=== PATIENT | female | born 1965 | race Caucasian/White ===

== ENCOUNTER → 2023-05-31 13:55 | Outpatient (CLI) | payer OTHER, SELFPAY ==
--- NOTE | ~2023-05-31 | CT_ITS ---
EXAMINATION: CT abdomen pelvis w con INDICATION: Left upper quadrant pain TECHNIQUE: Computed tomographic images of the abdomen and pelvis were obtained after the administrati on of 100 cc of Omnipaque 350 intravenous contrast. The dose-length product (DLP) was 1091.69 mGy-cm. Automated exposure control and iterative reconstruction technique were employed. COMPARISON: None available FINDINGS: Minimal dependent atelectasis is present in the lung bases. The heart size is normal. The l iver is diffusely low in attenuation when compared with the spleen, consistent with hepatic steatosis . The spleen, pancreas, gallbladder, and adrenal glands are normal. The right kidney is unremarkable. There is a 1.5 cm soft tissue attenuation mass of the left mid kidney. No pathologically enlarged ab dominal or pelvic lymph nodes are identified. No free intraperitoneal gas or evidence of bowel obstru ction. Colonic diverticulosis is present without evidence of diverticulitis. The appendix is normal. There is mild lumbar spondylosis. IMPRESSION: 1. No CT correlate for the patient's symptoms. 2. Diffuse hepatic steatosis. 3. Indeterminate left kidney mass which could reflect proteinaceous cyst or renal neoplasm. Follow-up CT or MRI without and with contrast is recommended. Reviewed, dictated and finalized at location F. IMPRESSION: 1. No CT correlate for the patient's symptoms. 2. Diffuse hepatic steatosis. 3. Indeterminate left kidney mass which could reflect proteinaceous cyst or deven al neoplasm. Follow-up CT or MRI without and with contrast is recommended.
[2023-05-31 14:21] LABS: Estimated Glomerular Filt Rate 57
== END ==
PROVIDERS: PCP Family Medicine Sports Medicine; Visit Provider Family Medicine Sports Medicine
DX: R10.12 Left upper quadrant pain (principal); R19.8 Other specified symptoms and signs involving the digestive system and abdomen; K76.0 Fatty (change of) liver, not elsewhere classified; N28.89 Other specified disorders of kidney and ureter
CPT/HCPCS: 74177; Q9967

== ENCOUNTER → 2023-06-14 08:59 | Outpatient (CLI) | payer OTHER, SELFPAY ==
--- NOTE | ~2023-06-14 | CT_ITS ---
CT of the Abdomen and Pelvis: Indication: Left renal mass Technique: 2.5 mm axial scans were obtained through the abdomen and pelvis prior to and following in travenous administration of 100 cc of Omnipaque 350. Dose reduction technique was used on this scan b y utilizing automated exposure control and iterative reconstruction technique. The dose-length produc t (DLP) was 1830.18 mGy-cm. COMPARISON: 05/31/2023 Findings: Scans through the lung bases are unremarkable. Probable diffuse fatty infiltration of liver. The spleen, pancreas, gallbladder, adrenals and right k idney are within normal limits. 1.6 cm benign left renal cyst is present. No evidence of aortic aneur ysm. No lymphadenopathy. No bowel obstruction or bowel wall thickening. There is no evidence to suggest acute appendicitis. Images through the pelvis were performed. Urinary bladder unremarkable. No adnexal mass seen. No asci juan miguel. Impression: Benign left renal cyst. Diffuse fatty infiltration of liver. Reviewed, dictated and finalized at location . Impression: Benign left renal cyst. Diffuse fatty infiltration of liver.
[2023-06-14 09:22] LABS: Estimated Glomerular Filt Rate > 60
== END ==
PROVIDERS: PCP Family Medicine Sports Medicine; Visit Provider Family Medicine Sports Medicine
DX: E04.2 Nontoxic multinodular goiter (principal); N28.1 Cyst of kidney, acquired; K76.0 Fatty (change of) liver, not elsewhere classified; N28.89 Other specified disorders of kidney and ureter
CPT/HCPCS: 74178; Q9967

== ENCOUNTER 2025-02-07 00:15 | Day surgery (SDC) | payer OTHER, SELFPAY ==
[2025-01-28 11:37] VITALS: BMI 40.7
--- OUTSIDE RECORDS SUMMARY | 2025-02-07 00:18 | XMS_ITS | Referral Summary ---
Author Organization [facility] Address [address] [place] [address] Care Team Providers Care Food Trades Assistants Name Role Phone Sara Persaud NP Primary Care Provider Quentin Solano MD Unavailable [phone] Aileen Ornelas MD Unavailable [phone] Encounters Date Type Department Care Team Description 12/30/2024 Orders Only [facility] at [address] [address] Sara Persaud NP 11/18/2024 Results Follow-Up [facility] at [address] [address] Sara Persaud NP Hemoglobin A1c, Vitamin D 25 hydroxy, Thyroid Function [place], Additional followed-up results: 5 11/15/2024 9:18 AM CDT - 11/15/2024 11:59 PM CDT Hospital Encounter [address] [address] IGT (impaired glucose tolerance); Vitamin D deficiency; Acquired hypothyroidism; Essential hypertension with goal blood pressure less than 130/80 Discharge Disposition: Discharge to home or self care 11/15/2024 9:30 AM CDT Lab [facility] at [address] [address] Hypothyroidism (Primary Dx) 11/13/2024 4:00 PM CDT Office Visit [facility] at [address] [address] Sara Perasud NP Annual physical exam (Primary Dx); Essential hypertension with goal blood pressure less than 130/80; Colon cancer screening; Acquired hypothyroidism; IGT (impaired glucose tolerance); Vitamin D deficiency; Class 3 severe obesity due to excess calories with serious comorbidity and body mass index (BMI) of 40.0 to 44.9 in adult (HCC) from Last 3 Months Allergies Active Allergy Reactions Criticality Noted Date Comments Erythromycin Other (See comments) Low Pt does not recall allergy Penicillins Shortness of breath High Difficulty breathing Sulfa (Sulfonamide Antibiotics) Itching Low 06/26/2020 Medications al & mag hydroxide with simethicone-di phenhydramine- lidocaine (MAGIC MOUTHWASH) suspension [id number] ns:Sore throat Take 10 mL by mouth every 6 (six) hours as needed (sore throat) Gargle and swallow. May cause drowsiness. If drowsiness is undesirable, may gargle and spit. 240 mL 11/08/19 24 Active Additional Information Patient not taking.Informant: Self, Reported on 11/13/2024 albuterol HFA (PROVENTIL HFA,VENTOLIN HFA,PROAIR HFA) 90 mcg/actuation inhaler Inhale 2 puffs every 6 (six) hours as needed for wheezing Active montelukast (SINGULAIR) 10 mg tablet TAKE 1 TABLET BY MOUTH EVERY MORNING BEFORE BREAKFAST 100 tablet 10/22/19 25 Active losartan-hydro CHLOROthiazide (HYZAAR) 100-12.5 mg per tablet TAKE 1 TABLET BY MOUTH DAILY 90 tablet 10/23/19 25 Active tirzepatide, weight loss, (Zepbound) 5 mg/0.5 mL pen injector Inject 0.5 mL (5 mg total) under the skin every 7 days 3 mL 1 12/31/19 25 Active levothyroxine (SYNTHROID) 75 mcg tablet TAKE 1 TABLET(75 MCG) BY MOUTH DAILY 90 tablet 01/30/20 25 Active levothyroxine (SYNTHROID) 75 mcg tablet Take 1 tablet (75 mcg total) by mouth transplant nurse before breakfast 025 Discontinued Active Problems Problem Noted Date Diagnosed Date Colitis 11/14/2023 Fatty liver 06/05/2023 Overview (06/15/2023): Noted on CT abdomen pelvis 05/31/[address] abdomen and pelvis done 06/14/2023 Renal cyst, left 06/05/2023 Overview (06/15/2023): Noted initially on CT abdomen pelvis done for abdominal pain 05/31/23. The follow-up CT abdomen and pelvis with and without contrast renal protocol 06/14/23 confirmed that the area corresponds to a benign-appearing left renal cyst. No additional evaluation is needed IGT (impaired glucose tolerance) 04/11/2023 Class 3 severe obesity due t o excess calories with serious comorbidity and body mass index (BMI) of 40.0 to 44.9 in adult 04/26/2022 Assessment & Plan (11/13/2024 4:43 PM CDT): Healthy, low carbohydrate lifestyle and exercise for 150min/week recommended Discussed weight loss medication options, pt will check with insurance. Hypothyroidism 04/26/2022 Assessment & Plan (11/13/2024 4:44 PM CDT): Continues Synthroid 75 mcg, updated labs ordered Essential hypertension with goal blood pressure less than 130/80 04/25/2022 Assessment & Plan (11/13/2024 4:44 PM CDT): BP stable in office, continues Hyzaar Updated labs ordered. Mild intermittent asthma without complication Ganglion of left wrist 07/20/2020 Overview (07/20/2020): Added automatically from request for surgery [id number] Immunizations Immunization Administration Dates Next Due Influenza, Quadrivalent, Mckayla l Culture-based MDCK, Preservative Free, Antibiotic Free, Intramuscular 05/18/2019,08/04/2018,08/19/2017 Influenza, Quadrivalent, Spl it, Preservative Free, Intramuscular 08/06/2021 Pfizer SARS-CoV-2 Monovalent Vaccination (12+ Yrs) ALVARADO-READY TO USE 12/15/2021 Pfizer SARS-CoV-2 Monovalent Vaccination (12+ Yrs) PURPLE 12/17/2021,08/06/2021 Pneumococcal Polysaccharide PPV23 04/26/2022 Tdap 04/26/2022 ZOSTER Recombinant 07/29/2019,05/18/2019 Social History Tobacco Use Types Packs/Day Years Used Date Smoking Tobacco: Never Smokeless Tobacco: Never Tobacco Cessation:Counseling Given: Not Answered Alcohol Use Standard Drinks/Week Comments Yes 0 (1 standard drink = 0.6 oz pur e alcohol) social AUDIT-C Answer Date Recorded Q1: How often do you have a drink containing alc ohol? 2-4 times a month 04/26/2022 Q2: How many drinks containi ng alcohol do you have on a typical day when you are drinking? 1 or 2 04/26/2022 Q3: How often do you have si x or more drinks on one occasion? Never 04/26/2022 PHQ-2 Answer Date Recorded PHQ-2 Total Score (If total score is 3 or more points, staff should administer the PHQ-9) 0 11/13/2024 Exercise Vital Sign Answer Date Recorde d On average, how many days pe r week do you engage in moderate to strenuous exercise (like a brisk walk)? 0 days 04/26/2022 On average, how many minutes do you engage in exercise at this level? 0 min 04/26/2022 Personal Safety Answer Date Recorded Have you ever been in or are you currently in a harmful physical or emotional relationship or is someone making you feel afraid or unsafe? Denies 11/14/2023 Comments No Sex and Gender Information Value Date Recorded Sex Assigned at Not on file Legal Sex Female 7:44 PM ENVIRONMENTAL PROGRAM MANAGER Gender Identity Female 08/31/2020 7:41 PM ENVIRONMENTAL PROGRAM MANAGER Sexual Orientation Not on file Last Filed Vital Signs Vital Sign Reading Time Taken Comments Blood Pressure 130/84 11/13/2024 4:01 PM CDT Pulse 91 11/13/2024 4:01 PM CDT Temperature 36.8 C (98.2 F) 11/13/2024 4:01 PM CDT Respiratory Rate 18 11/15/2023 7:56 AM CDT Oxygen Saturation 96% 11/13/2024 4:01 PM CDT Inhaled Oxygen Concentration - - Weight 112.5 kg (248 lb) 11/13/2024 4:01 PM CDT Height 165.1 cm (5' 5) 11/13/2024 4:01 PM CDT Body Mass Index 41.27 11/13/2024 4:01 PM CDT Plan of Treatment Not on file Procedures Procedure Name Priority Date/Time Associated Diagnosis Comments EGFR Routine 11/15/2024 12:00 AM CDT Essential hypertension with goal blood pressure less than 130/80 DIFFERENTIAL AUTO Routine 11/15/2024 12:00 AM CDT Essential hypertension with goal blood pressure less than 130/80 CBC WITH AUTO DIFFERENTIAL Routine 11/15/2024 12:00 AM CDT Essential hypertension with goal blood pressure less than 130/80 COMPREHENSIVE METABOLIC PANEL Routine 11/15/2024 12:00 AM CDT Essential hypertension with goal blood pressure less than 130/80 LIPID PANEL Routine 11/15/2024 12:00 AM CDT Essential hypertension with goal blood pressure less than 130/80 THYROID FUNCTION CASCADE Routine 11/15/2024 12:00 AM CDT Acquired hypothyroidism VITAMIN D 25 HYDROXY Routine 11/15/2024 12:00 AM CDT Vitamin D deficiency HEMOGLOBIN A1C Routine 11/15/2024 12:00 AM CDT IGT (impaired glucose tolerance) SCREENING MAMMOGRAM BILATERAL W JAGDEEP Schedule Routine, Read Routine (OP Routine) 09/06/2024 12:41 PM ENVIRONMENTAL PROGRAM MANAGER Screening mammogram for breast cancer HEPATITIS C ANTIBODY Routine 04/10/2023 9:19 AM CDT Encounter for hepatitis C screening test for low risk patient Encounter for general adult medical examination with abnormal findings from Last 3 Months or Most Recently Relevant to Health Maintenance Results * eGFR (11/15/2024 12:00 AM CDT) eGFR 83 >=60 mL/min/1. 73 m2 Comment: Interpretive Data Reference Interval Normal >/= 90 mL/min/1.73m2 Mildly decreased* 60 - 89 mL/min/1.73m2 Mildly to moderately decreased 45 - 59 mL/min/1.73m2 Moderately to severely decreased 30 - 44 mL/min/1.73m2 Severely decreased 15 - 29 mL/min/1.73m2 Kidney Failure < 15 mL/min/1.73m2 *Relative to young adult level Estimated glomerular filtration rate is determined by the 2020 CKD-EPI equation recommended by the National Kidney Foundation (A Unifying Approach to GFR Estimation: Recommendations of the NKF-ASK Task Force on Reassessing the Inclusion of Race in Diagnosing Kidney Disease, JASN 202). The CKD-EPI equation should not be used for patients with unstable renal function and has not been validated in children and those over 70. Current interpretive data was last reviewed 2021. Blood 11/15/2024 11/15/2024 4:2 2 PM CDT Sara Persaud NP LAB BLOOD ORDERABLES Final Resul t FELIX [address] [address] Department of Laboratories [place] [id number] * Differential, auto (11/15/2024 12:00 AM CDT) Neutrophil abs 3.9 1.5 - 6.5 K/cumm Imm gran abs 0.0 0.0 - 0.1 K/cumm [facility] Lymphocyte abs 2.6 0.8 - 3.3 K/cumm [facility] Monocyte abs 0.4 0.2 - 0.8 K/cumm [facility] Eosinophil abs 0.4 0.0 - 0.5 K/cumm [facility] Basophil abs 0.1 0.0 - 0.1 K/cumm [facility] Neutrophil pct 53.0 % [facility] Comment: Interpretive Data Percent cell count reference ranges are not reported, since discordance with absolute values may lead to misinterpretation of CBC data. Current Interpretive Data was last revised on 2017. Imm gran pct 0.4 % [facility] Comment: Interpretive Data Percent cell count reference ranges are not reported, since discordance with absolute values may lead to misinterpretation of CBC data. Current Interpretive Data was last revised on 2017. Lymphocyte pct 35.3 % [facility] Comment: Interpretive Data Percent cell count reference ranges are not reported, since discordance with absolute values may lead to misinterpretation of CBC data. Current Interpretive Data was last revised on 2017. Monocyte pct 5.3 % [facility] Comment: Interpretive Data Percent cell count reference ranges are not reported, since discordance with absolute values may lead to misinterpretation of CBC data. Current Interpretive Data was last revised on 2017. Eosinophil pct 4.9 % [facility] Comment: Interpretive Data Percent cell count reference ranges are not reported, since discordance with absolute values may lead to misinterpretation of CBC data. Current Interpretive Data was last revised on 2017. Basophil pct 1.1 % [facility] Comment: Interpretive Data Percent cell count reference ranges are not reported, since discordance with absolute values may lead to misinterpretation of CBC data. Current Interpretive Data was last revised on 2017. Blood 11/15/2024 11/15/2024 4:1 0 PM CDT us Sara Persaud NP LAB BLOOD ORDERABLES Final Resul t Performing Organization Address [facility] Co de Phone Number [facility] [place] [address] [place] [address] * Thyroid Function [place] (11/15/2024 12:00 AM CDT) TSH 4.08 0.30 - 4.20 mcIUnit/mL Blood 11/15/2024 11/15/2024 4:1 0 PM CDT us Sara Persaud RELIGIOUS LEADER LAB BLOOD ORDERABLES Final Resul t Performing Organization Address [facility] Co de Phone Number [facility] [place] [address] [address] Department of [employer] [place] [address] * (ABNORMAL) CBC with auto differential (11/15/2024 12:00 AM CDT) WBC 7.4 3.8 - 9.9 K/cumm Hgb 12.5 11.9 - 15.5 g/dL [facility] Hct 41.2 35.6 - 45.5 % [facility] Plt 352 150 - 400 K/cumm [facility] MPV 9.4 9.1 - 12.3 fL [facility] RBC 4.18 3.90 - 5.20 M/cumm [facility] MCV 98.6(H) 81.3 - 96.4 fL [facility] MCH 29.9 27.1 - 33.3 pg [facility] MCHC 30.3(L) 32.3 - 35.7 g/dL [facility] RDW CV 13.5 11.1 - 14.9 % [facility] RDW SD 49.5(H) 35.7 - 48.1 fL [facility] NRBC abs 0.00 0.00 - 0.01 K/cumm [facility] Blood 11/15/2024 11/15/2024 4:1 0 PM CDT Sara Persaud RELIGIOUS LEADER LAB BLOOD ORDERABLES Final Resul t Performing Organization Address [facility] de Phone Number [facility] [address] [employer] [place], [place] [phone] * (ABNORMAL) Vitamin D 25 hydroxy (11/15/2024 12:00 AM CDT) Pathologist [facility] Vitamin D 25-OH 24(L) 30 - 80 ng/mL Blood 11/15/2024 11/15/2024 4:1 0 PM CDT Sara Persaud RELIGIOUS LEADER LAB BLOOD ORDERABLES Final Resul t Performing Organization Address [facility] Co de Phone Number [facility] [address] [address] Department [employer] [place], [place] [id number] * (ABNORMAL) Hemoglobin A1c (11/15/2024 12:00 AM CDT) Pathologist [facility] Hgb A1C 6.2(H) 4.0 - 5.6 % Estimated Average Glucose 131 mg/dL [facility] Comment: The ADA recommends reporting an estimated Average Glucose (eAG) with all Hemoglobin A1c results using the equation derived from a study of 507 normal and diabetic adults. Minority populations were underrepresented and children were not included. (Diabetes Care 31:4850-2958, 2008). The eAG is not equivalent to a fasting glucose. Blood 11/15/2024 11/15/2024 4:1 0 PM CDT Sara Persaud NP LAB BLOOD ORDERABLES Final Resul t [facility] [address] [address] Department [place] [address] * Lipid panel (11/15/2024 12:00 AM CDT) Cholesterol 184 30 - 199 mg/dL Comment: Interpretive Data Ages < or = 19 years Acceptable: <170 mg/dL Borderline high: 170-199 mg/dL High: >or= 200 mg/dL Ages > or = 20 years Desirable: <200 mg/dL Borderline high: 200-239 mg/dL High: >or= 240 mg/dL Literature References: 1. Expert Panel on Integrated Guidelines for Cardiovascular Health and Risk Reduction in Children and Adolescents. Pediatrics 2011;128:S213 2. NCEP Expert Panel. Circulation 2004;110:227 Current Interpretive Data was last revised on 2018. Triglycerides 118 <=149 mg/dL [facility] Comment: Interpretive Data Ages < or = 9 years Acceptable: <75 mg/dL Borderline high: 75-99 mg/dL High: >or= 100 mg/dL Ages 10 to 20 years Acceptable: <90 mg/dL Borderline high: 90-129 mg/dL High: >or= 130 mg/dL Ages > or = 20 years Desirable: <150 mg/dL Borderline high: 150-199 mg/dL High: 200-499 mg/dL Very high: >or= 499 mg/dL Literature References: 1. Expert Panel on Integrated Guidelines for Cardiovascular Health and Risk Reduction in Children and Adolescents. Pediatrics 2011;128:S213 2. NCEP Expert Panel. Circulation 2004;110:227 Current Interpretive Data was last revised on 2018. HDL 62 >=40 mg/dL [facility] Comment: Interpretive Data Ages < or = 19 years Acceptable: >45 mg/dL Borderline low: 40-45 mg/dL Low: <40 mg/dL Ages > or = 20 years Desirable: >or= 60 mg/dL Low: <40 mg/dL Literature References: 1. Expert Panel on Integrated Guidelines for Cardiovascular Health and Risk Reduction in Children and Adolescents. Pediatrics 2011;128:S213 2. NCEP Expert Panel. Circulation 2004;110:227 Current Interpretive Data was last revised on 2018. LDL, calculated 101 <=129 mg/dL [facility] Comment: Interpretive Data Ages < or = 19 years Acceptable: <110 mg/dL Borderline high: 110-129 mg/dL High: >or= 130 mg/dL Ages > or = 20 years Optimal: <100 mg/dL Near optimal: 100-129 mg/dL Borderline high: 130-159 mg/dL High: >160 mg/dL Calculated using the Mir LDL-C estimating equation. This equation was implemented on 2024. Prior to this date LDL-C was estimated using the Friedewald equation. Literature References: 1. Expert Panel on Integrated Guidelines for Cardiovascular Health and Risk Reduction in Children and Adolescents. Pediatrics 2011;128:S213 2. NCEP Expert Panel. Circulation 2004;110:227 3. Mir Abdul et al. REANNA Cardiol. 2020 January 02;5(5):540-548. doi: 10.1001/jamacardio.2020.0013 Current Interpretive Data was last revised on 2024. Non-HDL Cholesterol 122 mg/dL [facility] Comment: Interpretive Data Ages < or = 19 years Acceptable: <120 mg/dL Borderline high: 120-144 mg/dL High: >145 mg/dL Ages > or = 20 years When triglycerides are >200 mg/dL, Non-HDL cholesterol is a secondary target of therapy with treatment goals that are 30 mg/dL greater than the LDL cholesterol target. Literature References: 1. Expert Panel on Integrated Guidelines for Cardiovascular Health and Risk Reduction in Children and Adolescents. Pediatrics 2011;128:S213 2. NCEP Expert Panel. Circulation 2004;110:227 Current Interpretive Data was last revised on 2018. Chol/HDL ratio 3 [facility] Blood 11/15/2024 11/15/2024 4:1 0 PM CDT us Sara Persaud RELIGIOUS LEADER LAB BLOOD ORDERABLES Final Resul t Performing Organization Address City/[facility]/[place] [address] [address] Department [place] [address] * Comprehensive metabolic panel (11/15/2024 12:00 AM CDT) Sodium 138 135 - 145 mmol/L Potassium, pl 4.4 3.3 - 4.9 mmol/L [facility] Chloride 102 97 - 110 mmol/L [facility] CO2 25 22 - 32 mmol/L [facility] Anion gap 11 2 - 15 mmol/L [facility] BUN 12 6 - 25 mg/dL [facility] Creatinine 0.81 0.60 - 1.10 mg/dL [facility] Glucose 113 70 - 199 mg/dL [facility] Comment: Interpretive Data Fasting glucose >/= 126 mg/dl is diagnostic for diabetes. Fasting is defined as no caloric intake for at least 8 hours. Fasting glucose between 100 mg/dl to 125 mg/dl is diagnostic of prediabetes. In a patient with classic symptoms of hyperglycemia or hyperglycemic crisis, a random glucose >/= 200 mg/dl is diagnostic for diabetes. In the absence of unequivocal hyperglycemia, results should be confirmed by repeat testing. The classification and Diagnosis of Diabetes Diabetes Care 202; 46: S19-S40. Current interpretive data was last revised 2022. Calcium 9.3 8.5 - 10.3 mg/dL [facility] Bilirubin, total 0.7 0.1 - 1.2 mg/dL [facility] Protein, pl 7.2 6.5 - 8.5 g/dL [facility] Albumin 4.0 3.5 - 5.0 g/dL [facility] Alk phos 52 40 - 130 Units/L [facility] ALT 24 7 - 45 Units/L [facility] AST 28 10 - 45 Units/L [facility] Blood 11/15/2024 11/15/2024 4:1 0 PM CDT us Sara Persaud RELIGIOUS LEADER LAB BLOOD ORDERABLES Final Resul t [facility] [address] [address] Department [place] [address] * Screening Mammogram Bilateral W Jagdeep (09/06/2024 12:41 PM ENVIRONMENTAL PROGRAM MANAGER) Anatomical Region Laterality Modality Breast Bilateral Mammography Narrative 09/06/2024 5:29 PM ENVIRONMENTAL PROGRAM MANAGER Examination: Screening Mammogram Bilateral W Jagdeep: 09/06/24 Clinical: Screening mammogram for breast cancer. Prior Study Comparisons: Comparison was made to the prior available relevant studies at the time of interpretation. Findings: Screening Mammogram Bilateral W Jagdeep Bilateral No significant masses, malignant type calcifications, skin thickening, nipple retraction, or significant lymphadenopathy is noted in either breast. Computer Aided Detection was utilized for the interpretation of this study. There are scattered areas of fibroglandular density. The patient will be notified of results by letter. Impression: BI-RADS ATLAS category (overall): 2 - Benign There is no mammographic evidence of malignancy. Routine Screening Mammogram in 1 Yr is recommended for bilateral Overall Assessment: 2 - Benign us Aileen Ornelas MD IMG MAMMO PROCEDURES Final Result * Hepatitis C antibody (04/10/2023 9:19 AM CDT) Hep C Ab Nonreactive Nonreactive [facility] Comment: Interpretive Data Nonreactive: Antibodies to HCV not detected. Does NOT exclude the possibility of recent exposure to HCV. Equivocal: Equivocal for HCV antibodies. Supplemental molecular testing will be automatically performed to determine infection status in accordance with current CDC screening recommendations. Reactive: Positive for HCV antibodies. This may represent current or past HCV infection. Supplemental molecular testing will be automatically performed to determine current infection status in accordance with current CDC screening recommendations. Interpretive data was last revised on 2019. Blood 04/10/2023 9:19 AM CDT 04/10/2023 2:56 PM CDT us Nelli Abel MD LAB MICROBIOLOGY - GEN ERAL ORDERABLES Final Result [facility] [place] [address] [place] [address] from Last 3 Months or Most Recently Relevant to Health Maintenance Insurance [employer] OPEN ACCESS [employer] OPEN ACCESS [employer] OPEN ACCESS [employer] OPEN ACCESS Advance Directives For more information, please contact: [phone] * Full Code (Latest Code Status on File) Date Activated Date Inactivated Comments 11/14/2023 11:20 PM 11/15/2023 3:50 PM Care Teams Food Trades Assistants Relationship Specialty Start Date End Date Sara Persaud NP [address] [facility] [[email or web address] [address] [place] [address] PCP - General Family Medicine 11/13/24 Quentin Solano MD [address] [facility] [address] [place] [address] Referring Physician Gastroenterology 11/13/24 Aileen Ornelas MD [address] [facility] [[email or web address]] [address] [place] [address] Consulting Physician Obstetrics and Gynecology 11/13/24
--- OUTSIDE RECORDS SUMMARY | 2025-02-07 00:18 | XMS_ITS | Clinical Summary ---
Author Organization [facility] Address [address] [place] [address] Care Team Providers Care Incinerator Plant Laborer Name Role Phone Unavailable Primary Care Provider Unavailabl e Source Comments [facility],non-owned Affiliates and Associated Physician Practices is amultiple site organization consisting of ambulatory clinics and hospital sitesin [place], [place], [place] and [place]. This disclosure is being madepursuant to the Care Everywhere program and may not contain all information available regarding this patient. Last updated 18.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 Gender Identity Not on file Sexual Orientation Not on file Plan of Treatment Health Maintenance Due Date Last Done Comments COLOGUARD (AGES 45-75) - COL ON CA SCREENING 1963 COLON MONITORING 1963 COLONOSCOPY - COLON CA SCREENING 1963 CT COLONOGRAPHY - COLON CA SCREENING 1963 Colorectal Cancer Screening 1963 FIT - COLON CA SCREENING 1963 FLEX SIG - COLON CA SCREENING 1963 LIPID TESTING 1963 MAMMOGRAM 1963 HIV SCREENING 1978 HEPATITIS C SCREENING 10/20/1981 DTAP/TDAP/TD VACCINES (1 - Tdap) 1982 PNEUMOCOCCAL VACCINE 50+ (1 of 1 - PCV) 2013 ZOSTER VACCINE (1 of 2) 2013 COVID-19 VACCINE (3 - 2023-2 5 season) 2024 12/17/2021, 08/06/2021 DEPRESSION SCREENING 09/04/2024 INFLUENZA VACCINE (Season Ended) 2025 05/18/2019, 08/04/2018, 08/19/2017 Respiratory Syncytial Virus (RSV) Vaccine Pt: or over 60 yrs (1 - 1-dose 75+ series) 2038 HEPATITIS B VACCINE Aged Out No longe r eligible based on patient's age to complete this topic HIB VACCINE Aged Out No longer eligi ble based on patient's age to complete this topic HPV VACCINE Aged Out No longer eligi ble based on patient's age to complete this topic MENINGOCOCCAL (Group B) VACCINE SHARED DECISION-MAKING Aged Out No longer eligible based on patient's age to complete this topic MENINGOCOCCAL GROUPS A/C/Y/W VACCINE Aged Out No longer eligible b ased on patient's age to complete this topic Insurance CIG
--- OUTSIDE RECORDS SUMMARY | 2025-02-07 00:18 | XMS_ITS | Clinical Summary ---
Author Organization [facility] Address [address] [place] [address] Care Team Providers Care Game Preserve Manager Name Role Phone Cori Sara MESA Primary Care Provider [phone] Quentin Solano MD Unavailable [phone] Aileen Ornelas MD Unavailable [phone] Allergies Active Allergy Reactions Criticality Noted Date Comments Erythromycin Other (See comments) Low Pt does not recall allergy Penicillins Shortness of breath High Difficulty breathing Sulfa (Sulfonamide Antibiotics) Itching Low 06/26/2020 Medications al & mag hydroxide with simethicone-di phenhydramine- lidocaine (MAGIC MOUTHWASH) suspension [id number] ns:Sore throat Take 10 mL by mouth [...] 1 tablet (75 mcg total) by mouth 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 before 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 025 Discontinued Active Problems Problem [...] (07/20/2020): Added automatically from request for surgery [id number] Encounters Date Type Department Care Team Description 12/30/2024 Orders Only [facility] Medical [facility] Primary Care at [address] [phone] Sara Persaud NP 11/18/2024 Results Follow-Up [facility] at [address] [phone] Sara Persaud NP Hemoglobin A1c, Vitamin D 25 hydroxy, Thyroid Function Sherman, Additional followed-up results: 5 11/15/2024 9:30 AM CDT Lab [facility] at [address] [phone] Hypothyroidism (Primary Dx) 11/15/2024 9:18 AM CDT - 11/15/2024 11:59 PM CDT Hospital Encounter [address] [address] IGT (impaired glucose tolerance); Vitamin D deficiency; Acquired hypothyroidism; Essential hypertension with goal blood pressure less than 130/80 Discharge Disposition: Discharge to home or self care 11/13/2024 4:00 PM CDT Office Visit [facility] at [address] [phone] Sara Persaud NP Annual physical exam (Primary Dx); Essential hypertension with goal blood pressure less than 130/80; Colon cancer screening; Acquired hypothyroidism; IGT (impaired glucose tolerance); Vitamin D deficiency; Class 3 severe obesity due to excess calories with serious comorbidity and body mass index (BMI) of 40.0 to 44.9 in adult (HCC) from Last 3 Months Immunizations Immunization Administration Dates Next Due Influenza, Quadrivalent, Mckayla l Culture-based MDCK, Preservative Free, Antibiotic Free, Intramuscular 05/18/2019,08/04/2018,08/19/2017 Influenza, Quadrivalent, Spl it, Preservative Free, Intramuscular 08/06/2021 Pfizer SARS-CoV-2 Monovalent Vaccination (12+ Yrs) ALVARADO-READY TO USE 12/15/2021 Pfizer SARS-CoV-2 Monovalent Vaccination (12+ Yrs) PURPLE 12/17/2021,08/06/2021 Pneumococcal Polysaccharide PPV23 04/26/2022 Tdap 04/26/2022 ZOSTER Recombinant 07/29/2019,05/18/2019 Surgical History Surgery Date Site/Laterality Comments SECTION x3 WISDOM TOOTH EXTRACTION WRIST SURGERY 09/04/2019 - 09/03/2020 Left ganglion cyst Medical History Medical History Date Comments Asthma Pre-eclampsia Ganglion cyst Essential hypertension with goal blood pressure less than 130/80 04/25/2022 Hypothyroidism 04/26/2022 Mild intermittent asthma without complication Family History Medical History Relation Name Comments Coronary artery disease Father Jhon 60's Diabetes Father Jhon Heart disease Father Jhon Hypertension Father Jhon Lung cancer Father Jhon (72) Smoking Breast cancer Maternal Grandmother 70 Arthritis Mother Hannah Diabetes Mother Hannah Lung cancer Mother Hannah (70) Smoking Anesthesia problems Neg Hx Cervical cancer Neg Hx Colon cancer Neg Hx Endometrial cancer Neg Hx Ovarian cancer Neg Hx Relation Name Status Comments Father Jhon Maternal Grandmother Mother Hannah Sister Alive Social History Tobacco Use Types Packs/Day Years [...] on file Legal Sex Female 7:44 PM 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 Gender Identity Female 08/31/2020 7:41 PM 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 Sexual Orientation Not on file Obstetrics History Last Filed Vital Signs Vital Sign Reading [...] 11/13/2024 4:01 PM CDT Plan of Treatment Health Maintenance Due Date Last Done Comments Colon Cancer Screening-Colonoscopy 1965 Hepatitis B Screening 1981 Pneumococcal vaccine <65 (2 of 2 - PCV) 04/26/2023 04/26/2022 Covid-19 Vaccine (2023-2 5 season) 2024 12/17/2021, 12/15/2021, 08/06/2021, Additional history exists Influenza Vaccine (Season Ended) 2025 08/06/2021, 05/18/2019, 08/04/2018, Additional history exists Cervical Cancer Screening 06/29/2025 06/29/2023 Breast Cancer Screening-Mammogram 09/06/2025 09/06/2024, 09/01/2023, 09/01/2022, Additional history exists Depression Screening 11/13/2025 11/13/2024, 03/23/2023, 08/03/2022, Additional history exists Regular Well Visit/Exam 18-64 11/13/2025, 07/16/2024, 03/23/2023, Additional history exists DTaP/Tdap/Td Vaccine (2 - Td or Tdap) 04/26/2032 04/26/2022 Zoster Vaccine Completed 07/29/2019, 05/18/2019 Hepatitis C Screening Completed 04/10/2023 Procedures Procedure Name Priority Date/Time Associated Diagnosis [...] Read Routine (OP Routine) 09/06/2024 12:41 PM 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 Screening mammogram for breast cancer HEPATITIS C [...] of Race in Diagnosing Kidney Disease, JASN 2020). The CKD-EPI equation should not be used for patients with unstable renal function and has not been validated in children and those over 70. Current interpretive data was last reviewed 2021. Blood 11/15/2024 11/15/2024 4:2 2 PM CDT Sara Persaud NP LAB BLOOD ORDERABLES Final Resul t [facility] [address] Department [place] [address] * Differential, auto (11/15/2024 12:00 AM CDT) Neutrophil abs 3.9 1.5 - 6.5 K/cumm Imm gran abs 0.0 0.0 - 0.1 K/cumm [facility] Lymphocyte abs 2.6 0.8 - 3.3 K/cumm [facility] Monocyte abs 0.4 0.2 - 0.8 K/cumm [facility] Eosinophil abs 0.4 0.0 - 0.5 K/cumm [facility] Basophil abs 0.1 0.0 - 0.1 K/cumm [facility] Neutrophil pct 53.0 % [facility] Comment: Interpretive [...] revised on 2017. Lymphocyte pct 35.3 % [facility] Comment: Interpretive Data Percent cell count reference ranges are not reported, since discordance with absolute values may lead to misinterpretation of CBC data. Current Interpretive Data was last revised on 2017. Monocyte pct 5.3 % [facility] Comment: Interpretive Data Percent cell count reference ranges are not reported, since discordance with absolute values may lead to misinterpretation of CBC data. Current Interpretive Data was last revised on 2017. Eosinophil pct 4.9 % [facility] Comment: Interpretive Data Percent cell count reference ranges are not reported, since discordance with absolute values may lead to misinterpretation of CBC data. Current Interpretive Data was last revised on 2017. Basophil pct 1.1 % [facility] Comment: Interpretive Data Percent cell count reference ranges are not reported, since discordance with absolute values may lead to misinterpretation of CBC data. Current Interpretive Data was last revised on 2017. Blood 11/15/2024 11/15/2024 4:1 0 PM CDT us Sara Persaud GRAPHICS SPECIALIST LAB BLOOD ORDERABLES Final Resul t Performing Organization Address [facility] Co de Phone Number [facility] [address] [place], [place] [phone] * Thyroid Function Sherman (11/15/2024 12:00 AM CDT) TSH 4.08 0.30 - 4.20 mcIUnit/mL Blood 11/15/2024 11/15/2024 4:1 0 PM CDT Sara Persaud GRAPHICS SPECIALIST LAB BLOOD ORDERABLES Final Resul t Performing Organization Address [facility] Co de Phone Number [facility] [address] [facility] [place], [place] [phone] * (ABNORMAL) CBC with auto differential (11/15/2024 12:00 AM CDT) WBC 7.4 3.8 - 9.9 K/cumm Hgb 12.5 11.9 - 15.5 g/dL [facility] Hct 41.2 35.6 - 45.5 % [facility] Plt 352 150 - 400 K/cumm [facility] MPV 9.4 9.1 - 12.3 fL [facility] RBC 4.18 3.90 - 5.20 M/cumm [facility] MCV 98.6(H) 81.3 - 96.4 fL [facility] MCH 29.9 27.1 - 33.3 pg [facility] MCHC 30.3(L) 32.3 - 35.7 g/dL [facility] RDW CV 13.5 11.1 - 14.9 % [facility] RDW SD 49.5(H) 35.7 - 48.1 fL [facility] NRBC abs 0.00 0.00 - 0.01 K/cumm [facility] Blood 11/15/2024 11/15/2024 4:1 0 PM CDT us Sara Persaud GRAPHICS SPECIALIST LAB BLOOD ORDERABLES Final Resul t Performing Organization Address [facility] de Phone Number [facility] [id number] [place] [address] * (ABNORMAL) Vitamin D 25 hydroxy (11/15/2024 12:00 AM CDT) Pathologist [facility] Vitamin D 25-OH 24(L) 30 - 80 ng/mL Blood 11/15/2024 11/15/2024 4:1 0 PM CDT Sara Persaud GRAPHICS SPECIALIST LAB BLOOD ORDERABLES Final Resul t Performing Organization Address [facility] de Phone Number [facility] [address] [address] [place] [address] * (ABNORMAL) Hemoglobin A1c (11/15/2024 12:00 AM CDT) Pathologist [facility] Hgb A1C 6.2(H) 4.0 - 5.6 % Estimated Average Glucose 131 mg/dL [facility] Comment: The ADA recommends reporting an estimated Average Glucose (eAG) with all Hemoglobin A1c results using the equation derived from a study of 507 normal and diabetic adults. Minority populations were underrepresented and children were not included. (Diabetes Care 31:8867-8304, 2008). The eAG is not equivalent to a fasting glucose. Blood 11/15/2024 11/15/2024 4:1 0 PM CDT us Sara Cox GRAPHICS SPECIALIST LAB BLOOD ORDERABLES Final Resul t [facility] [address] Department [place] [address] * Lipid panel (11/15/2024 12:00 AM CDT) [...] on 2018. Triglycerides 118 <=149 mg/dL [facility] Comment: Interpretive Data Ages < or = [...] 3. Mir Abdul et al. REANNA Cardiol. 2019January 02;5(5):540-548. doi: 10.1001/jamacardio.2020.0013 Current Interpretive Data was [...] revised on 2018. Chol/HDL ratio 3 [facility] Blood 11/15/2024 11/15/2024 4:1 0 PM CDT Sara Persaud GRAPHICS SPECIALIST LAB BLOOD ORDERABLES Final Resul t Performing Organization Address [facility] Co de Phone Number [facility] [address] [place] [address] * Comprehensive metabolic panel (11/15/2024 12:00 AM [...] 4:1 0 PM CDT us Sara Persaud GRAPHICS SPECIALIST LAB BLOOD ORDERABLES Final Resul t Performing Organization Address [facility] Co de Phone Number [facility] [address] Department of [employer] [place], [place] [phone] * Screening Mammogram Bilateral W Jagdeep (09/06/2024 12:41 PM 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) Anatomical Region Laterality Modality Breast Bilateral Mammography Narrative 09/06/2024 5:29 PM 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 Examination: Screening Mammogram Bilateral W Jagdeep: 09/06/24 [...] for bilateral Overall Assessment: 2 - Benign Aileen Ornelas MD IMG MAMMO PROCEDURES Final [...] - GEN ERAL ORDERABLES Final Result [facility] [address] Department [place] [address] from Last 3 Months or Most Recently Relevant to Health Maintenance Insurance [facility] OPEN ACCESS [employer] OPEN ACCESS [employer] OPEN ACCESS Advance Directives For more information, please contact: [phone] * Full Code (Latest Code Status on File) Date Activated Date Inactivated Comments 11/14/2023 11:20 PM 11/15/2023 3:50 PM Care Teams Game Preserve Manager Relationship Specialty Start Date End Date Sara Persaud NP [address] [facility] [address] [place] [address] PCP - General Family Medicine 11/13/24 Quentin Solano MD [address] [place] [address] Referring Physician Gastroenterology 11/13/24 Aileen Ornelas MD [address] [facility] [address] [place] [address] Consulting Physician Obstetrics and Gynecology 11/13/24
--- OUTSIDE RECORDS SUMMARY | 2025-02-07 00:18 | XMS_ITS | Encounter Summary ---
Author Organization [facility] Address [address] [facility] [place] [address] Care Team Providers Care Wardrobe Manager Name Role Phone Unavailable Primary Care Provider Unavailabl e Encounter Details Date Type Department Care Team (Late st Contact Info) Description 01/18/2021 Lab Requisition [facility] D[facility] Lab [address] [place] [address] Marie Bustamante MD [address] [place] [address] Social History Tobacco Use Types Packs/Day Years Used Date Smoking Tobacco: Never Assessed Comments Unknown Sex and Gender Information Value Date Recorded Sex Assigned at Not on file Legal Sex Female 5:[address]/MEDICAL INTERPRETER Gender Identity Not on file Sexual Orientation Not on file documented as of this encounter Plan of Treatment Not on file documented as of this encounter Procedures Procedure Name Priority Date/Time Associated Diagnosis Comments DERMATOPATHOLOGY Routine 01/14/2021 12:0 0 AM CDT documented in this encounter Results * DERMATOPATHOLOGY (01/14/2021 12:00 AM CDT) Case Report Dermatopathology Report Case: [id number] Authorizing Provider: Marie Bustamante MD Collected: 01/14/2021 12:00 AM Ordering Location: [facility] D[facility] Lab Received: 01/18/2021 11:45 AM Pathologist: Laura Farmer MD Specimen: Skin, right hand 12:50 PM CDT DERMATOPATHOLOGY LABORATORY Final Diagnosis Specimen A. SKIN, right hand: DERMAL SCAR RESIDUAL MELANOCYTIC PROLIFERATION NOT IDENTIFIED (L90.5) 12:50 PM CDT DERMATOPATHOLOGY LABORATORY at 1250 CDT Clinical History Junctional melanocytic proliferation; Bx proven. 12:50 PM CDT DERMATOPATHOLOGY LABORATORY Gross Description Specimen A: Received is one formalin filled container labeled with the patient's name and designated right hand. The specimen consists of a non-oriented ellipse of skin measuring [id number]. The margin is inked green. Jar 0. 12:50 PM CDT DERMATOPATHOLOGY LABORATORY Microscopic Description Specimen A. SKIN, right hand: There are fibroblasts and collagen bundles oriented parallel to the skin surface. There are elongated blood vessels, some of which are oriented perpendicular to the skin surface. No residual melanocytic proliferation is identified. 12:50 PM CDT DERMATOPATHOLOGY LABORATORY Disclaimer An external and internal positive and negative controls are appropriate for the histochemical, immunohistochemical and immunofluorescence stain(s) in this case (if any), except where stated explicitly. The performance characteristics of the stain(s) cited in this report were developed and its performance characteristic determined by the Dermatopathology Laboratory at [facility], directed by Dr. Hang Pompa. These tests need not be, and therefore are not, approved by the [place] Food and Drug Administration. The tests are used for clinical purposes. Billing Codes Specimen Charges Stain Charges 07342 1 12:50 PM CDT DERMATOPATHOLOGY LABORATORY Embedded Images 12:50 PM CDT DERMATOPATHOLOGY LABORATORY Pathology/Cytolog y TISSUE SPECIMEN FROM SKIN / Unknown 01/14/2021 01/18/2021 11:45 AM CDT Marie Bustamante MD LAB - PATHOLOGY/CYTOLOGY ORDERA BLES Final Result DERMATOPATHOLOGY LABORATORY [facility] - Department of Dermatology [address] [phone] documented in this encounter Visit Diagnoses Not on filedocumented in this encounter
[2025-02-07 06:50] VITALS: BP 116/78; PULSE 86; RESP 20; TEMP 35.8; O2SAT 100; BMI 38.4
[2025-02-07] MEDS: LACTATED RINGERS 1,000 ML 150 ML IV CONT (07:02)
--- NOTE | 2025-02-07 07:15 | WPDANESEPPF ---
Anes - Initial Pre Proc Eval Procedure: Operation Date: 02/07/25 08:00 Proposed Procedures p Screening Colonoscopy - Christopher Smith MD Date/Time: 02/07/25 07:15 Surgeon: Christopher Smith MD Pre Op Diagnosis: Screening Patient Data Age: 59 Gender: F Height: 1.65 m Weight: 104.7 kg Last Vital Signs Temp 35.8 C L 02/07/25 06:50 Pulse 86 02/07/25 06:50 Resp 20 02/07/25 06:50 BP 116/78 02/07/25 06:50 Pulse Ox 100 02/07/25 06:50 O2 Del Method Room Air 02/07/25 06:50 Allergies Allergy/AdvReac Type Severity Reaction Status Date / Time Penicillins Allergy Severe trouble Verified 01/28/25 11:33 breathing Sulfa (Sulfonamide Allergy Severe itching, Verified 01/28/25 11:33 Antibiotics) wheezing Home Medications ?Medication ?Instructions ?Recorded ?Confirmed ?Type levothyroxine 75 mcg tablet 75 mcg PO DAILY 01/28/25 02/07/25 History losartan 100 1 tablet PO DAILY 01/28/25 02/07/25 History mg-hydrochlorothiazide 12.5 mg tablet montelukast 10 mg tablet 10 mg PO DAILY 01/28/25 02/07/25 History tirzepatide (weight loss) 5 mg/0.5 5 mg subcut WEEKLY 01/28/25 02/07/25 History mL subcutaneous pen injector (Zepbound) Patient hx anesthesia problems: none Family hx anesthesia problems: none Results Review: All pre-operative results and documents have been reviewed as part of the pre-operative evaluation. [facility] Past Medical History Medical History (Updated 02/07/25 @ 07:15 by Ky Kramer MD) Asthma Obesity HTN (hypertension) Social History Social History Smoking status: Never smoker Alcohol intake: current Drinks per week: 4 Substance use type: does not use Living arrangements: with family Additional living arrangements comments: with sp Anes - Eval Final PreProcedure Day of Procedure 02/07/25 07:15 Patient weight: obese Heart: regular rate and rhythm Lungs: clear to auscultation Airway: Mallampati scale class II Neurological: alert and oriented Last oral intake: >/= 8 hours ASA classification: III Emergent: no Anesthetic plan: proceed Anesthesia type and monitoring: general GIVS and standard monitoring Results Review: All pre-operative results and documents have been reviewed as part of the pre-operative evaluation. Informed Consent: The patient's anesthetic plan and its attendant risks and benefits were discussed with the patient/family/POA. Questions were solicited and answers provided to the satisfaction of the patient/family/POA.
--- NOTE | 2025-02-07 07:55 | PM.IMHP ---
H&P: HPI History of Present Illness Date/Time: 02/07/25 07:55 Chief Complaint: Screening colonoscopy Narrative: This is the patient's 2nd colonoscopy. There are no GI symptoms and there is no family history of colorectal cancer. Review of Systems Review of Systems: All systems reviewed & are unremarkable except as noted in HPI and below PMFSH Past Medical History Medical History (Updated 02/07/25 @ 07:55 by Christopher Smith MD) Asthma Obesity HTN (hypertension) Social History Social History Smoking status: Never smoker Alcohol intake: current Drinks per week: 4 Substance use type: does not use Living arrangements: with family Additional living arrangements comments: with sp Meds Home Medications and Allergies Home Medications ?Medication ?Instructions ?Recorded ?Confirmed ?Type levothyroxine 75 mcg tablet 75 mcg PO DAILY 01/28/25 02/07/25 History losartan 100 1 tablet PO DAILY 01/28/25 02/07/25 History mg-hydrochlorothiazide 12.5 mg tablet montelukast 10 mg tablet 10 mg PO DAILY 01/28/25 02/07/25 History tirzepatide (weight loss) 5 mg/0.5 5 mg subcut WEEKLY 01/28/25 02/07/25 History mL subcutaneous pen injector (Zepbound) Allergies Allergy/AdvReac Type Severity Reaction Status Date / Time Penicillins Allergy Severe trouble Verified 01/28/25 11:33 breathing Sulfa (Sulfonamide Allergy Severe itching, Verified 01/28/25 11:33 Antibiotics) wheezing Vital Signs Vital Signs - 24 hr 02/07/25 06:50 Temperature 96.5 F L Pulse Rate 86 Respiratory Rate 20 Blood Pressure 116/78 Pulse Oximetry 100 Oxygen Delivery Room Air Assessment and Plan Assessment and plan (1) Encounter for screening colonoscopy: Code(s): Z12.11 - Encounter for screening for malignant neoplasm of colon Status: Acute Assessment and Plan: The patient is deemed a good candidate for the procedure. Consent signed. Will proceed.
--- NOTE | 2025-02-07 08:14 | S_PTH ---
PATIENT: Helga Ott LOC: [facility] U#:[id number] AGE/SX: 59/F ROOM: RE02/07/[address]: Christopher Smith MD : 1965 BED: DIS: 02/07/2025 SPEC #: [id number] RECD: 02/07/25 09:39 STATUS: ANIYA RETarsha #: [id number] CARLOS: 02/07/25 08:[address]: Christopher Smith DEPT: [facility] Surgical RECD BY: Yana Velez ENTERED: 02/07/25 09:39 SP TYPE: Surgical OTHR DR: Sara Persaud, MANAGER COLLEGE Tissues: A - Colon Polypectomy Procedures: Hematoxylin and Eosin Stain Gross and Microscopic Level 4
[2025-02-07 08:15] VITALS: BP 133/83; PULSE 77; RESP 19; O2SAT 98
[2025-02-07 08:25] VITALS: BP 131/81; PULSE 77; RESP 19; O2SAT 99
[2025-02-07 08:35] VITALS: BP 127/77; PULSE 66; RESP 15; O2SAT 99
== END 2025-02-07 08:47 | disposition home or self-care (01) ==
PROVIDERS: PCP Nurse Practitioner Family; Referring Provider Nurse Practitioner Family; Visit Provider Internal Medicine Gastroenterology
PROC: 0DJD8ZZ Inspection of Lower Intestinal Tract, Via Natural or Artificial Opening Endoscopic (ICD-10-PCS; CPT 45378; principal; 2025-02-07 08:00)
DX: Z12.11 Encounter for screening for malignant neoplasm of colon (principal); D12.2 Benign neoplasm of ascending colon; K57.30 Diverticulosis of large intestine without perforation or abscess without bleeding; J45.909 Unspecified asthma, uncomplicated; I10 Essential (primary) hypertension; E66.9 Obesity, unspecified; Z68.38 Body mass index [BMI] 38.0-38.9, adult; Z79.85 Long-term (current) use of injectable non-insulin antidiabetic drugs
CPT/HCPCS: 45385; 88305; J2003; J2704; J7120